=== PATIENT | male | born 2005 | race African-American/Black ===

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

== ENCOUNTER 2025-04-21 02:18 | Inpatient (IN) | payer MEDICAID, OTHER ==
[~2025-04-21] VITALS: Ht 188 cm; Wt 68.0 kg
[2025-04-21 05:05] LABS: PLATELET COUNT (AUTO) 335 K/uL (150-450); RED BLOOD CELL COUNT(AUTO) 5.31 MIL/uL (4.50-5.90); RED CELL DISTRIBUTION WIDTH 12.9 % (11.5-14.5); WHITE BLOOD COUNT (AUTO) 10.2 K/uL (4.5-11.0)
[2025-04-21 05:14] LABS: CALCIUM, TOTAL 9.9 mg/dL (8.8-10.5); CREATININE 1.14 mg/dL (0.60-1.30); GLOMERULAR FILTR. RATE CALC > 60 mL/min (>60); GLUCOSE,RANDOM 82 mg/dL (70-110); SODIUM SERUM 140 mmol/L (136-145); UREA NITROGEN, BLOOD 17 mg/dL (7-18)
[2025-04-21 05:15] LABS: COVID AG,FIA SOURCE NASAL SWAB
[2025-04-21 05:35] LABS: SARS-COV2 (COVID) ANTIGEN,FIA Negative (Negative)
[2025-04-21 12:46] VITALS: O2SAT 95
[2025-04-21 14:30] VITALS: BP 134/93; PULSE 101; RESP 18; TEMP 97; O2SAT 100
[2025-04-21] MEDS ORDERED: LOPERAMIDE HCL 2 MG CAPSULE PO PRN (19:45)
[2025-04-21] MEDS ORDERED: MAGNESIUM HYDROXIDE SUSPENSION 30 ML UDCUP PO PRN (19:45)
[2025-04-21] MEDS ORDERED: NICOTINE 14 MG/24 HOUR PATCH TD PRN (19:45)
[2025-04-21] MEDS ORDERED: DOCUSATE SODIUM 100 MG CAPSULE PO PRN (19:45)
[2025-04-21] MEDS: POTASSIUM CHLORIDE 20 MEQ ER TABLET PO ONE (19:45)
[2025-04-21] MEDS ORDERED: ACETAMINOPHEN 325 MG TABLET PO PRN (19:45)
[2025-04-21] MEDS ORDERED: PETROLATUM,WHITE 28 GM JELLY TP PRN (19:45)
[2025-04-21] MEDS ORDERED: GuaiFENesin/D-METHORPHAN [SUGAR-FREE] 200-20MG/10 ML SYRUP UDCUP PO PRN (19:45)
[2025-04-21] MEDS ORDERED: ONDANSETRON 4 MG TABLET PO PRN (19:45)
[2025-04-21] MEDS ORDERED: MAG HYDROX/ALUMINUM HYD/SIMETH ES 30 ML SUSPENSION UDCUP PO PRN (19:45)
[2025-04-21 20:38] VITALS: RESP 19
[2025-04-21] MEDS: ALBUTEROL SULFATE HFA 90 MCG/PUFF 8 GM INHALER IH PRN (21:12)
[2025-04-22 08:44] VITALS: BP 123/89; PULSE 100; RESP 16; TEMP 98.1; O2SAT 95
[2025-04-22 20:29] VITALS: BP 124/93; PULSE 100; RESP 16; TEMP 98.1; O2SAT 100
[2025-04-23 08:23] VITALS: BP 97/83; PULSE 100; RESP 15; TEMP 97.9; O2SAT 100
[2025-04-23 08:56] LABS: PLATELET COUNT (AUTO) 298 K/uL (150-450); RED BLOOD CELL COUNT(AUTO) 5.19 MIL/uL (4.50-5.90); RED CELL DISTRIBUTION WIDTH 13.0 % (11.5-14.5); WHITE BLOOD COUNT (AUTO) 6.1 K/uL (4.5-11.0)
[2025-04-23 09:33] LABS: ASPARTATE AMINOTRANSFERASE 25 U/L (15-37); CALCIUM, TOTAL 9.6 mg/dL (8.8-10.5); CREATININE 1.11 mg/dL (0.60-1.30); GLOMERULAR FILTR. RATE CALC > 60 mL/min (>60); GLUCOSE,RANDOM 74 mg/dL (70-110); SODIUM SERUM 143 mmol/L (136-145); TOTAL PROTEIN, SERUM 7.1 g/dL (6.4-8.2); UREA NITROGEN, BLOOD 13 mg/dL (7-18)
[2025-04-23 09:56] LABS: CHOL/HDL RATIO 2.6 (4.2-7.3); LDL CHOL (CALC.) 96.0 mg/dL (0-130)
[2025-04-23 20:23] VITALS: BP 115/95; PULSE 98; RESP 18; TEMP 97.2; O2SAT 99
[2025-04-24 08:29] VITALS: BP 115/81; PULSE 101; RESP 18; TEMP 97.4; O2SAT 99
[2025-04-24 20:20] VITALS: BP 102/75; PULSE 98; RESP 18; TEMP 98.1; O2SAT 97
[2025-04-24] MEDS: ZOLPIDEM TARTRATE 10 MG TABLET PO PRN (22:29)
[2025-04-25 08:22] VITALS: BP 111/86; PULSE 69; RESP 16; TEMP 98.2; O2SAT 100
[2025-04-25 20:48] VITALS: RESP 18
[2025-04-26 10:12] VITALS: BP 109/78; PULSE 88; RESP 17; TEMP 98.8; O2SAT 100
[2025-04-26 22:44] VITALS: RESP 17
[2025-04-27 11:36] VITALS: RESP 18
[2025-04-27 20:30] VITALS: BP 132/88; PULSE 94; RESP 16; TEMP 98.2; O2SAT 99
[2025-04-28 08:49] VITALS: BP 109/72; PULSE 100; RESP 17; TEMP 97.9; O2SAT 100
[2025-04-28 21:03] VITALS: BP 139/74; PULSE 81; RESP 18; TEMP 98.1; O2SAT 97
[2025-04-29 08:17] VITALS: BP 124/81; PULSE 81; RESP 16; TEMP 97.6; O2SAT 100
[2025-04-29 20:13] VITALS: BP 120/94; PULSE 74; RESP 16; RESP 19; TEMP 98.2; O2SAT 100
[2025-04-30 08:04] VITALS: BP 136/88; PULSE 100; RESP 16; TEMP 98.4; O2SAT 100
[2025-04-30 09:22] VITALS: RESP 16
[2025-04-30 10:22] VITALS: RESP 16
[2025-04-30 20:25] VITALS: BP 109/66; PULSE 81; RESP 18; TEMP 98.6; O2SAT 100
[2025-05-01 08:16] VITALS: BP 123/98; PULSE 88; RESP 18; TEMP 97.8; O2SAT 96
[2025-05-01 20:16] VITALS: BP 118/68; PULSE 89; RESP 16; TEMP 98.4; O2SAT 99
[2025-05-02 08:30] VITALS: BP 120/73; PULSE 93; RESP 18; TEMP 97.9; O2SAT 99
[2025-05-02 20:49] VITALS: BP 115/69; PULSE 84; RESP 18; TEMP 98.8; O2SAT 99
[2025-05-03 08:35] VITALS: BP 123/75; PULSE 94; RESP 18; TEMP 97; O2SAT 100
[2025-05-03 08:59] LABS: APPEARANCE,URINE CLEAR (CLEAR); GLUCOSE, URINE (UA) NEGATIVE (NEGATIVE); LEUKOCYTE ESTERASE ,URINE NEGATIVE (NEGATIVE); NITRATE,URINE NEGATIVE (NEGATIVE); OCCULT BLOOD,URINE NEGATIVE (NEGATIVE); PH,URINE DRUG SCREEN 6.5 (5.0-8.0); SPECIFIC GRAVITIY, URINE 1.004 (1.003-1.030)
[2025-05-03 09:08] LABS: AMPHET/METH SCREEN,URINE NEGATIVE (NEGATIVE); BARBITURATE SCREEN, URINE NEGATIVE (NEGATIVE); CANNABINOID SCREEN,URINE NEGATIVE (NEGATIVE); COCAINE SCREEN,URINE NEGATIVE (NEGATIVE); METHADONE SCREEN, URINE NEGATIVE (NEGATIVE)
[2025-05-03 09:09] LABS: ALCOHOL, URINE DRUG SCREEN NEGATIVE (NEGATIVE)
[2025-05-03 13:58] VITALS: RESP 18; O2SAT 100
[2025-05-03] MEDS: IBUPROFEN 400 MG TABLET PO PRN (13:58)
[2025-05-03 14:58] VITALS: RESP 17
[2025-05-03 20:00] VITALS: BP 119/76; PULSE 92; RESP 16; TEMP 98; O2SAT 96
[2025-05-04 08:16] VITALS: BP 105/67; PULSE 98; RESP 17; TEMP 97.9; O2SAT 100
[2025-05-04 20:12] VITALS: BP 127/77; PULSE 78; RESP 18; TEMP 98.5; O2SAT 98
[2025-05-05 08:08] VITALS: BP 117/77; RESP 15; TEMP 97.9; O2SAT 100
[2025-05-05 08:59] LABS: PLATELET COUNT (AUTO) 292 K/uL (150-450); RED BLOOD CELL COUNT(AUTO) 4.61 MIL/uL (4.50-5.90); RED CELL DISTRIBUTION WIDTH 12.8 % (11.5-14.5); WHITE BLOOD COUNT (AUTO) 6.4 K/uL (4.5-11.0)
[2025-05-05 09:21] LABS: CALCIUM, TOTAL 9.2 mg/dL (8.8-10.5); CREATININE 1.06 mg/dL (0.60-1.30); GLOMERULAR FILTR. RATE CALC > 60 mL/min (>60); GLUCOSE,RANDOM 70 mg/dL (70-110); SODIUM SERUM 143 mmol/L (136-145); UREA NITROGEN, BLOOD 11 mg/dL (7-18)
[2025-05-05 21:11] VITALS: BP 107/68; PULSE 94; RESP 17; TEMP 97.6; O2SAT 99
[2025-05-06 08:17] VITALS: BP 111/76; PULSE 96; RESP 17; TEMP 98.1; O2SAT 100
[2025-05-06 20:13] VITALS: BP 107/63; PULSE 100; RESP 16; TEMP 98.9; O2SAT 99
[2025-05-07 05:03] VITALS: BP 129/83; PULSE 82; RESP 18; TEMP 97.6; O2SAT 98
[2025-05-07 06:06] VITALS: RESP 17
[2025-05-07 08:23] VITALS: BP 110/71; RESP 16; TEMP 97.7; O2SAT 100
[2025-05-07] MEDS ORDERED: RISP3TAB77 PO (09:18)
== END 2025-05-07 13:01 | disposition home or self-care (01) | DRG 750 ==
LOC: EMS 02:21 → B3A 13:05
PROVIDERS: ADMIT Psychiatry & Neurology Child & Adolescent Psychiatry; ATTEND Psychiatry & Neurology Child & Adolescent Psychiatry
PROC: GZHZZZZ Group Psychotherapy (ICD-10-PCS; principal; 2025-04-22)
PROC: GZ52ZZZ Individual Psychotherapy, Cognitive (ICD-10-PCS; 2025-04-22)
DX: F29 Unspecified psychosis not due to a substance or known physiological condition (principal); D64.9 Anemia, unspecified; Z20.822 Contact with and (suspected) exposure to COVID-19; F41.9 Anxiety disorder, unspecified; R03.0 Elevated blood-pressure reading, without diagnosis of hypertension; Z79.899 Other long term (current) drug therapy; R00.0 Tachycardia, unspecified
CPT/HCPCS: 70450; 80048; 80053; 80061; 80307; 81003; 83036; 84436; 84443; 85025; 86592; 99285; G0480; J3535